=== PATIENT | female | born 1995 | race African-American/Black ===

== ENCOUNTER 2017-08-31 18:26 | Emergency (ER) | payer OTHER ==
[~2017-08-31] VITALS: Ht 157.5 cm; Wt 68.0 kg
[~2017-08-31 18:26] MED LIST: CIPRO500 MG PO; IBUPROFEN 800800 M1 PO
[2017-08-31] MEDS ORDERED: TOBRADEX EYE DRO5 ML OPHTHALMIC (19:01)
[2017-08-31 19:45] VITALS: BP 99/67
== END 2017-08-31 19:45 | disposition home or self-care (01) ==
LOC: ER 18:26
DX: T15.91XA Foreign body on external eye, part unspecified, right eye, initial encounter (principal); H10.9 Unspecified conjunctivitis; X58.XXXA Exposure to other specified factors, initial encounter; Y93.89 Activity, other specified; Y92.89 Other specified places as the place of occurrence of the external cause; Y99.8 Other external cause status

== ENCOUNTER 2019-12-17 21:23 | Emergency (ER) | payer OTHER ==
[~2019-12-17] VITALS: Ht 157.5 cm; Wt 92.5 kg
[~2019-12-17 21:23] MED LIST changes: +TOBRADEX EYE DRO5 ML OPHTHALMIC
[2019-12-17] MEDS ORDERED: ENBRACE HR SOF1 EACH PO (21:42)
[2019-12-17 22:35] LABS: ABSOLUTE NEUTROPHILS 8.5 thou/uL (1.4-8.2); BASOPHILS 0.2 % (0.0-2.0); EOSINOPHILS 0.3 % (0.0-3.0); MCH 29.1 pg (26.0-34.0); MCHC 33.4 g/dL (28.0-37.0); MCV 87.1 fL (80.0-100.0); MONOCYTES 6.6 % (1.0-8.0); PLATELET COUNT 270 thou/uL (150-400); POLYS 77.9 % (36.0-66.0); RBC 4.14 mil/uL (4.20-5.00); WBC 10.9 thou/uL (4.0-11.0)
[2019-12-17 23:12] LABS: CALCIUM 8.6 mg/dL (8.5-10.1); CREATININE 0.8 mg/dL (0.6-1.0); POTASSIUM 3.4 mmol/L (3.5-5.1)
[2019-12-17 23:18] LABS: ALBUMIN 2.9 g/dL (3.4-5.0); TOTAL BILIRUBIN 0.3 mg/dL (0.2-1.0); TOTAL PROTEIN 7.5 g/dL (6.4-8.2)
[2019-12-18 03:51] VITALS: BP 95/53
== END 2019-12-18 03:52 | disposition home or self-care (01) ==
LOC: ER 21:23
PROVIDERS: Emergency Medicine
DX: O9A.212 Injury, poisoning and certain other consequences of external causes complicating pregnancy, second trimester (principal); S39.91XA Unspecified injury of abdomen, initial encounter; Z79.899 Other long term (current) drug therapy; Z3A.00 Weeks of gestation of pregnancy not specified; Y04.2XXA Assault by strike against or bumped into by another person, initial encounter; Y93.89 Activity, other specified; Y92.89 Other specified places as the place of occurrence of the external cause; Y99.8 Other external cause status